=== PATIENT | male | born 1935 | race Caucasian/White ===

== ENCOUNTER 2016-08-19 13:26 | Emergency (ER) | payer OTHER ==
[~2016-08-19] VITALS: Ht 177.8 cm; Wt 83.5 kg
[2016-08-19 13:55] LABS: URINE BILIRUBIN NEGATIVE (Negative); URINE BLOOD NEGATIVE (Negative); URINE COLOR YELLOW; URINE GLUCOSE-RANDOM* NEGATIVE (Negative); URINE KETONES NEGATIVE (Negative); URINE NITRITE NEGATIVE (Negative); URINE PROTEIN (DIPSTICK) NEGATIVE (Negative); URINE SPECIFIC GRAVITY 1.015 (1.003-1.035); URINE UROBILINOGEN 0.2 E.U./dl (0.2-1.0)
[2016-08-19 14:45] LABS: ABSOLUTE NEUTROPHILS 5.6 thou/uL (1.4-8.2); BASOPHILS 0.7 % (0.0-2.0); HEMATOCRIT 37.2 % (42.0-52.0); HEMOGLOBIN 12.3 gm/dL (14.0-18.0); LYMPHOCYTES 24.4 % (24.0-44.0); MCH 32.3 pg (26.0-34.0); MCHC 33.1 g/dL (28.0-37.0); MCV 97.6 fL (80.0-100.0); MONOCYTES 9.2 % (1.0-8.0); PLATELET COUNT 280 thou/uL (150-400); POLYS 63.7 % (36.0-66.0); RBC 3.81 mil/uL (4.50-6.00); RDW 15.2 % (10.5-14.5); WBC 8.7 thou/uL (4.0-11.0)
[2016-08-19 14:46] LABS: MANUAL DIFF NO
[2016-08-19 14:52] LABS: CALCIUM 9.3 mg/dL (8.5-10.1); CREATININE 1.5 mg/dL (0.6-1.3); POTASSIUM 3.8 mmol/L (3.5-5.1)
[2016-08-19 14:59] LABS: ALBUMIN 3.2 g/dL (3.4-5.0); TOTAL BILIRUBIN 0.4 mg/dL (<0.1-1.0); TOTAL PROTEIN 6.9 g/dL (6.4-8.2)
[2016-08-19 15:09] LABS: INR 2.8; PROTIME 28.4 Seconds (9.3-11.4)
[2016-08-19 15:59] VITALS: BP 116/85
[2016-08-19] MEDS ORDERED: ATENOLOL 100MG100 MG PO (16:00)
[2016-08-19] MEDS ORDERED: ALLOPURINOL 30300 M2 PO (16:01)
[2016-08-19] MEDS ORDERED: IRON325 PO (16:01)
[2016-08-19] MEDS ORDERED: QUINAPRIL 20 MG20 MG PO (16:01)
[2016-08-19] MEDS ORDERED: FISH OIL300 MG PO (16:01)
[2016-08-19] MEDS ORDERED: DIFLUCAN200 MG PO (16:01)
[2016-08-19] MEDS ORDERED: MAXZIDE-25 MG1 EACH PO (16:01)
[2016-08-19] MEDS ORDERED: COUMADIN 5 MG TA5 M1 PO (16:02)
[2016-08-19] MEDS ORDERED: ASPIR 8181 MG PO (16:02)
[2016-08-19] MEDS ORDERED: POTASSIUM20 PO (16:02)
[2016-08-19] MEDS ORDERED: LIPITOR 20 MG T20 M1 PO (16:02)
[2016-08-19] MEDS ORDERED: PROSCAR 5MG TABL5 MG PO (16:02)
[2016-08-19] MEDS ORDERED: VITAMIN D1000 UNI1 PO (16:02)
[2016-08-19] MEDS ORDERED: METAMUCIL PAC1 UDPKT PO (16:03)
== END 2016-08-19 16:00 | disposition home or self-care (01) ==
LOC: ER 13:26
PROVIDERS: Emergency Medicine; Physician Assistant
DX: R10.84 Generalized abdominal pain (principal); I10 Essential (primary) hypertension; E78.5 Hyperlipidemia, unspecified; Z95.1 Presence of aortocoronary bypass graft; Z88.0 Allergy status to penicillin; Z91.048 Other nonmedicinal substance allergy status; F17.210 Nicotine dependence, cigarettes, uncomplicated